=== PATIENT | male | born 1975 | race Caucasian/White ===

== ENCOUNTER → 2021-02-13 | Day surgery (SDC) | payer OTHER ==
[~2021-02-13] MED LIST: CEPHALEXIN500 MG PO; HYDROCODON-ACE1 EAC2 PO; HYDROCODON-ACE1 EAC4 PO; LISINOPRIL10 MG PO
[2021-02-13 09:32] LABS: HEMOGLOBIN 16.2 gm/dl (14.0-17.5); RED BLOOD COUNT 5.56 M/UL (4.20-5.50)
[2021-02-13 10:07] LABS: BUN/CREATININE RATIO 15 (0-10)
== END | disposition home or self-care (01) ==
LOC: OR 08:30
PROVIDERS: Orthopaedic Surgery
DX: S67.193A Crushing injury of left middle finger, initial encounter (principal); S62.633A Displaced fracture of distal phalanx of left middle finger, initial encounter for closed fracture; I10 Essential (primary) hypertension; Z20.822 Contact with and (suspected) exposure to COVID-19; W23.1XXA Caught, crushed, jammed, or pinched between stationary objects, initial encounter; Y99.0 Civilian activity done for income or pay
CPT/HCPCS: 36415; 71045; 80048; 85027; 93005; J0690; J1100; J1885; J2001; J2250; J2405; J2704; J3010; J7120; U0002